=== PATIENT | male | born 1960 | race Caucasian/White ===

== ENCOUNTER → 2017-04-10 | Outpatient (CLI) | payer OTHER ==
--- NOTE | ~2017-04-10 | P ---
[facility] [place] [address] PROCEDURE REPORT Name: HUGH NUNO Room #: REG [facility].#: [id number] Admission: 04/10/17 Attend Phys: Hugh Hunter MD Discharge: Date of : 60 Report #: [id number] THIS REPORT FOR: //name// CC: [facility] physician/PCP Hugh Quinones MD DATE OF SERVICE: 04/10/2017 BRIEF HISTORY: The patient is a 56-year-old male for average risk screening colonoscopy. His last colon exam was 15 years ago for bleeding and was negative per the patient's report. PREOPERATIVE DIAGNOSIS: Average risk screening. POSTOPERATIVE DIAGNOSIS: Moderate sigmoid diverticulosis. MEDICATIONS: Deep sedation with propofol per anesthesia. SPECIMEN: None. ESTIMATED BLOOD LOSS: None. PROCEDURE: Colonoscopy to cecum and terminal ileum. FINDINGS: Prior to propofol sedation, procedure of colonoscopy discussed with the patient as well as potential risks and its complications. He indicates he understands and desires to proceed. DESCRIPTION OF PROCEDURE: With the patient in left lateral decubitus position, digital examination was completed which revealed no abnormalities. Subsequently, the [employer] video colonoscope was introduced in the rectum, advanced under direct vision to the cecum. Done with minimal difficulty. The cecum was identified by the ileocecal valve and the appendiceal orifice. I was able to visualize the distal segment of the terminal ileum, which was inspected and noted to be unremarkable. At that point, the scope was slowly withdrawn and careful circumferential views obtained including retroflexing the scope in the ascending colon. As we withdrew the scope, there were limitations of prep. Due to limitations, we had to lavage and irrigate. We were able to mush of the material, but not every last bit of it. However, overall, reasonably good views were obtained. After clean up, the prep was judged to be good. It is also noted the patient had a diffusely dilated colon suggestive of chronic constipation. Scope was further withdrawn and no additional abnormalities were noted until we reached the sigmoid colon, at which point, he was noted to have moderate to severe diverticular disease without endoscopic evidence of diverticulitis. The scope was withdrawn in the rectum and upon retroflexion, no [facility] [address] [place] [address] PROCEDURE REPORT Name: HUGH NUNO Room #: REG [facility] M..#: [id number] Admission: 04/10/17 Attend Phys: Hugh Hunter MD Discharge: Date of : 60 Report #: [id number] abnormalities were seen. Scope was withdrawn. The patient tolerated procedure well. CONDITION OF THE PATIENT UPON DISCHARGE: Following procedure, the patient drowsy, aroused, conversant and will be discharged home when fully ambulatory. INSTRUCTIONS TO THE PATIENT AND FAMILY AT THE TIME OF DISCHARGE: No neoplastic lesions were seen on today's screening exam. Suggest high fiber diet. The patient also is morbidly obese and weight loss would be beneficial with regards to potentially reducing risk of colorectal cancer. At this point, would suggest followup colon exam in 10 years for average risk patient. The patient's last colonoscopy was 15 years ago. Withdrawal time from the cecum was 21 minutes. By: [id number] Hugh Hunter MD /nt
== END | disposition home or self-care (01) ==
LOC: GI 07:31
DX: Z12.11 Encounter for screening for malignant neoplasm of colon (principal); K57.30 Diverticulosis of large intestine without perforation or abscess without bleeding